=== PATIENT | female | born 1990 | race Caucasian/White ===

== ENCOUNTER 2017-07-18 15:32 | Emergency (ER) | payer OTHER ==
[~2017-07-18] VITALS: Ht 170.2 cm; Wt 90.9 kg
[2017-07-18] MEDS ORDERED: RIZA10TA4 PO ×2 (15:49→15:50)
[2017-07-18] MEDS ORDERED: PREN0.01 PO (15:49)
[2017-07-18] MEDS ORDERED: VESI10TA2 PO (15:49)
[2017-07-18] MEDS ORDERED: RIBO100C PO (15:49)
[2017-07-18] MEDS ORDERED: MAGN400C3 PO (15:49)
[2017-07-18] MEDS ORDERED: ALBU17IN INH (15:50)
[2017-07-18] MEDS ORDERED: CITA20TA4 PO (15:50)
[2017-07-18] MEDS ORDERED: ACETAMINOPHEN TAB 650MG DOSE (2X325MG) PO ONE (16:15)
[2017-07-18] MEDS ORDERED: KETOROLAC 30 MG/ML VIAL (J1885) IV ONE (16:15)
[2017-07-18] MEDS ORDERED: NS 1,000 ML IV ONE (16:15)
[2017-07-18] MEDS ORDERED: METOCLOPRAMIDE INJ 10MG/2ML VIAL (J2765) IV ONE (16:15)
[2017-07-18 17:00] LABS: BASO % 0.3 % (0.0-1.0); EOS # 0.1 K/mm3 (0.0-0.50); EOS % 0.6 % (0.0-3.0); LARGE UNSTAINED CELL # 0.1 K/mm3 (0.0-0.4); LARGE UNSTAINED CELL % 0.6 % (0.0-4.0); LYMPH # 1.8 K/mm3 (1.5-6.5); LYMPH % 10.4 % (24.0-44.0); MEAN CORPUSCULAR HEMOGLOBIN 30.1 pg (27.0-33.0); MEAN CORPUSCULAR HGB CONC 34.1 g/dl (32.0-36.5); MEAN CORPUSCULAR VOLUME 88.1 fl (80.0-96.0); MONO # 0.5 K/mm3 (0.0-0.8); NEUTROPHILS # 13.8 K/mm3 (1.8-7.7); NEUTROPHILS % 85.1 % (36.0-66.0); PLATELET COUNT, AUTOMATED 332 k/mm3 (150-450); RED CELL DISTRIBUTION WIDTH 12.4 % (11.5-14.5); WHITE BLOOD COUNT 16.2 K/mm3 (4.0-10.0)
[2017-07-18 17:18] LABS: ANION GAP 6 MEQ/L (8-16); BLOOD UREA NITROGEN 12 MG/DL (7-18); CALCIUM LEVEL 9.1 MG/DL (8.5-10.1); CARBON DIOXIDE LEVEL 27 MEQ/L (21-32); CHLORIDE LEVEL 106 MEQ/L (98-107); CREATININE FOR GFR 0.52 MG/DL (0.55-1.02); GLOMERULAR FILTRATION RATE > 60.0 (>60); GLUCOSE, FASTING 84 MG/DL (70-105); POTASSIUM SERUM 3.9 MEQ/L (3.5-5.1); SODIUM LEVEL 139 MEQ/L (136-145)
[2017-07-18] MEDS ORDERED: ZOFR4TAB3 PO (17:39)
[2017-07-18 17:43] VITALS: BP 132/83
--- NOTE | 2017-07-19 10:38 | ECGEPIP ---
Stationary ECG Study [facility] - ED Test Date: 2017-07-18 Pat Name: VIN YAN Department: Room: - Gender: F School Superintendent: : 1990 Requested By: NAOMI CARRENO PA-C. Order Number: [id number] Reading MD: Fabby Rivera Measurements Intervals [place] Rate: 68 P: 57 RI: 144 QRS: 51 QRSD: 93 T: 46 QT: 410 QTc: 437 Interpretive Statements SINUS RHYTHM DELAYED R PROGRESSION NO PRIOR FOR COMPARISON Electronically Signed On 07-19-2017 10:38:07 EDT by Fabby Rivera
== END 2017-07-18 17:48 | disposition home or self-care (01) ==
LOC: M ED 15:32
DX: G43.909 Migraine, unspecified, not intractable, without status migrainosus (principal); T88.7XXA Unspecified adverse effect of drug or medicament, initial encounter; Y92.9 Unspecified place or not applicable; Y93.9 Activity, unspecified; J45.909 Unspecified asthma, uncomplicated; Q61.3 Polycystic kidney, unspecified; F41.9 Anxiety disorder, unspecified; F32.9 Major depressive disorder, single episode, unspecified; Z79.899 Other long term (current) drug therapy
CPT/HCPCS: 80048; 85025; 93005; 96374; 96375; 99284; J1885; J2765

== ENCOUNTER 2017-10-06 17:10 | Emergency (ER) | payer OTHER ==
[~2017-10-06] VITALS: Ht 170.2 cm; Wt 94.5 kg
[~2017-10-06 17:10] MED LIST: ALBU17IN INH; CITA20TA4 PO; MAGN400C3 PO; PREN0.01 PO; RIBO100C PO; RIZA10TA4 PO; VESI10TA2 PO; ZOFR4TAB3 PO
[2017-10-06 17:11] VITALS: BP 166/89
[2017-10-06] MEDS ORDERED: FIOR1CAP PO (17:20)
== END 2017-10-06 18:45 | disposition home or self-care (01) ==
LOC: M ED 18:09
DX: R20.2 Paresthesia of skin (principal); G43.909 Migraine, unspecified, not intractable, without status migrainosus; E28.2 Polycystic ovarian syndrome; F32.9 Major depressive disorder, single episode, unspecified; Z79.899 Other long term (current) drug therapy

== ENCOUNTER 2018-05-05 08:00 | Day surgery (SDC) | payer OTHER ==
[2018-05-05] MEDS: NS 1,000 ML IV (08:15)
[2018-05-05] MEDS ORDERED: PROPOFOL 500 MG/50 ML VIAL As Ordered (08:45)
[2018-05-05] MEDS ORDERED: fentaNYL 100 MCG/2 ML INJECTION (J3010) As Ordered (08:45)
[2018-05-05] MEDS ORDERED: LIDOCAINE 2% INJ 100 MG/5 ML SDV (FOR ANES.) As Ordered (08:45)
[2018-05-05] MEDS ORDERED: ePHEDrine SULFATE 25 MG/5 ML(5MG/ML) SYRINGE As Ordered (09:01)
== END 2018-05-05 09:56 | disposition home or self-care (01) ==
LOC: M OPP 08:00
DX: K64.0 First degree hemorrhoids (principal); K62.5 Hemorrhage of anus and rectum; R19.4 Change in bowel habit; R07.9 Chest pain, unspecified; R10.13 Epigastric pain; N18.9 Chronic kidney disease, unspecified; J45.909 Unspecified asthma, uncomplicated; G43.909 Migraine, unspecified, not intractable, without status migrainosus; Q61.3 Polycystic kidney, unspecified; Z79.899 Other long term (current) drug therapy; Z91.018 Allergy to other foods; Z88.8 Allergy status to other drugs, medicaments and biological substances
CPT/HCPCS: 45378

== ENCOUNTER → 2018-06-06 | Outpatient (REF) ==
[2018-06-06 12:17] LABS: RUBELLA IgG QUALITATIVE IMMUNE (IMMUNE)
== END ==
LOC: M LAB 10:00
DX: Z00.00 Encounter for general adult medical examination without abnormal findings (principal)

== ENCOUNTER 2018-06-11 21:12 | Emergency (ER) | payer OTHER ==
[2018-06-11] MEDS: NS 1,000 ML IV (21:26)
[2018-06-11] MEDS: ONDANSETRON 4MG/2ML VIAL (J2405) IV (21:30)
[2018-06-11 22:27] LABS: BASO % 0.1 % (0.0-1.0); EOS # 0.4 10^3/uL (0.0-0.50); EOS % 1.9 % (0.0-3.0); HEMATOCRIT 41.3 % (36.0-47.0); HEMOGLOBIN 13.7 g/dl (12.0-15.5); IMMATURE GRANULOCYTE % 0.3 % (0-3.0); LYMPH # 1.3 10^3/uL (1.5-6.5); MEAN CORPUSCULAR HEMOGLOBIN 29.8 pg (27.0-33.0); MEAN CORPUSCULAR HGB CONC 33.2 g/dl (32.0-36.5); MONO # 0.6 10^3/uL (0.0-0.8); MONO % 3.1 % (0.0-5.0); NEUTROPHILS # 15.8 10^3/uL (1.8-7.7); NEUTROPHILS % 87.6 % (36.0-66.0); PLATELET COUNT, AUTOMATED 398 10^3/uL (150-450); RED BLOOD COUNT 4.59 10^6/uL (4.00-5.40); RED CELL DISTRIBUTION WIDTH 12.9 % (11.5-14.5)
[2018-06-11 22:40] LABS: CONTROL LINE HCG INT CTR LINE PRESENT; HCG, SERUM QUALITATIVE NEGATIVE (NEGATIVE)
[2018-06-11 22:48] LABS: ALBUMIN 3.7 GM/DL (3.2-5.2); ALBUMIN/GLOBULIN RATIO 0.97 (1.00-1.93); ALKALINE PHOSPHATASE 53 U/L (45-117); ALT/SGPT 19 U/L (12-78); ANION GAP 11 MEQ/L (8-16); AST/SGOT 11 U/L (7-37); BILIRUBIN,DIRECT 0.1 MG/DL (0.0-0.2); BILIRUBIN,TOTAL 0.4 MG/DL (0.2-1.0); BLOOD UREA NITROGEN 14 MG/DL (7-18); CALCIUM LEVEL 8.3 MG/DL (8.5-10.1); CARBON DIOXIDE LEVEL 21 MEQ/L (21-32); CHLORIDE LEVEL 109 MEQ/L (98-107); CREATININE FOR GFR 0.65 MG/DL (0.55-1.30); GLOMERULAR FILTRATION RATE > 60.0 (>60); GLUCOSE, FASTING 118 MG/DL (70-100); LIPASE 110 U/L (73-393); POTASSIUM SERUM 3.6 MEQ/L (3.5-5.1); SODIUM LEVEL 141 MEQ/L (136-145); TOTAL PROTEIN 7.5 GM/DL (6.4-8.2)
[2018-06-11 23:03] LABS: KETONE, URINE AUTO RFX 1+ mg/dL (NEGATIVE); LEUKOCYTE ESTERASE UR AUTO RFX NEGATIVE (NEGATIVE); MUCUS, URINE RFX SMALL (NEGATIVE); NITRITE, URINE AUTO RFX NEGATIVE (NEGATIVE); RBC, URINE AUTO RFX 4 /HPF (0-3); SPECIFIC GRAVITY UR AUTO RFX 1.027 (1.002-1.035); SQUAM EPITHELIAL CELL UR AURFX 0 /HPF (0-6); WBC, URINE AUTO RFX 2 /HPF (0-3)
[2018-06-12] MEDS ORDERED: ACETAMINOPHEN 325 MG TAB As Ordered (00:02)
[2018-06-12] MEDS: ACETAMINOPHEN 325 MG TAB PO (00:14)
== END 2018-06-12 00:15 | disposition home or self-care (01) ==
LOC: M ED 06-12 00:15
DX: B34.9 Viral infection, unspecified (principal); K52.9 Noninfective gastroenteritis and colitis, unspecified; J45.909 Unspecified asthma, uncomplicated; K21.9 Gastro-esophageal reflux disease without esophagitis; Q61.3 Polycystic kidney, unspecified; F41.9 Anxiety disorder, unspecified; F33.9 Major depressive disorder, recurrent, unspecified; Z79.899 Other long term (current) drug therapy; Z88.8 Allergy status to other drugs, medicaments and biological substances; Z91.048 Other nonmedicinal substance allergy status
CPT/HCPCS: J2405

== ENCOUNTER 2018-08-17 21:13 | Emergency (ER) | payer OTHER ==
[2018-08-17] MEDS: METOCLOPRAMIDE INJ 10MG/2ML VIAL (J2765) IV (23:20)
[2018-08-17] MEDS: KETOROLAC 30 MG/ML VIAL (J1885) IV (23:20)
[2018-08-17] MEDS: NS 1,000 ML IV (23:20)
[2018-08-17] MEDS: methylPREDNISolone INJ 125 MG/2 ML VIAL (J2930) IV (23:21)
[2018-08-17] MEDS: FAMOTIDINE IV BAG 20 MG in APPROPRIATE DILUENT 1 EA IV (23:54)
== END 2018-08-18 00:58 | disposition home or self-care (01) ==
LOC: M ED 08-18 00:58
DX: G43.909 Migraine, unspecified, not intractable, without status migrainosus (principal); L50.9 Urticaria, unspecified; J45.909 Unspecified asthma, uncomplicated; F41.9 Anxiety disorder, unspecified; F32.9 Major depressive disorder, single episode, unspecified; Q61.3 Polycystic kidney, unspecified; Z87.891 Personal history of nicotine dependence; Z91.02 Food additives allergy status; Z91.018 Allergy to other foods; Z88.8 Allergy status to other drugs, medicaments and biological substances; Z79.899 Other long term (current) drug therapy
CPT/HCPCS: J1885

== ENCOUNTER 2019-01-12 22:40 | Emergency (ER) | payer OTHER ==
[~2019-01-12] VITALS: Ht 170.2 cm; Wt 97.7 kg
[~2019-01-12 22:40] MED LIST changes: +CARA1TAB6 PO; +CIME200T2 PO; +CITA20TA4; +COLA100C5 PO; +EPIP0.3I2 IM; +FIOR1CAP PO; +FLUTISP; +KETO10TAB PO; +MINO100C80; +MIRA3350 PO; +MYRB50TA; +PEPC1TAB5 PO; +PRED20TA PO; -PREN0.01 PO; +PRENTAB77 PO; +VITA100067 PO; +ZOFR4TAB14 PO; -ZOFR4TAB3 PO
[2019-01-13] MEDS ORDERED: KETOROLAC 60 MG/2 ML VIAL (J1885) IM ONE (00:45)
[2019-01-13] MEDS ORDERED: CYCLOBENZAPRINE 10 MG TAB PO ONE (00:45)
[2019-01-13] MEDS ORDERED: KETO10TAB PO (00:49)
[2019-01-13] MEDS ORDERED: CYCL5TAB PO (00:49)
[2019-01-13 00:53] VITALS: BP 129/69
== END 2019-01-13 00:54 | disposition home or self-care (01) ==
LOC: M ED 22:40
DX: S29.012A Strain of muscle and tendon of back wall of thorax, initial encounter (principal); X58.XXXA Exposure to other specified factors, initial encounter; Y92.89 Other specified places as the place of occurrence of the external cause; G43.909 Migraine, unspecified, not intractable, without status migrainosus; J45.909 Unspecified asthma, uncomplicated; Q61.3 Polycystic kidney, unspecified; F41.9 Anxiety disorder, unspecified; F32.9 Major depressive disorder, single episode, unspecified; Z88.8 Allergy status to other drugs, medicaments and biological substances; Z91.048 Other nonmedicinal substance allergy status
CPT/HCPCS: 96372; 99283; J1885

== ENCOUNTER 2019-01-18 23:38 | Emergency (ER) | payer OTHER ==
[~2019-01-18] VITALS: Ht 170.2 cm; Wt 100.0 kg
[~2019-01-18 23:38] MED LIST changes: +CYCL5TAB PO
[2019-01-18] MEDS ORDERED: diphenhydrAMINE INJ 50MG/ML VIAL (J1200) IV STA (23:48)
[2019-01-19] MEDS ORDERED: dexameTHASONE 20 MG/5 ML VIAL (J1100) IV ONE
[2019-01-19 00:22] VITALS: BP 118/69
== END 2019-01-19 00:33 | disposition home or self-care (01) ==
LOC: M ED 23:38
DX: R22.1 Localized swelling, mass and lump, neck (principal); T78.40XA Allergy, unspecified, initial encounter; J45.909 Unspecified asthma, uncomplicated; F41.9 Anxiety disorder, unspecified; F33.9 Major depressive disorder, recurrent, unspecified; Z91.02 Food additives allergy status; Z88.8 Allergy status to other drugs, medicaments and biological substances; Z91.048 Other nonmedicinal substance allergy status
CPT/HCPCS: 96374; 96375; 99284; J1100; J1200

== ENCOUNTER 2019-06-22 14:08 | Emergency (ER) | payer OTHER ==
[~2019-06-22] VITALS: Ht 170.2 cm; Wt 100.0 kg
[~2019-06-22 14:08] MED LIST changes: -CITA20TA4; -CITA20TA4 PO; +CITA20TA6; +CITA20TA6 PO
[2019-06-22] MEDS ORDERED: CITA20TA6 OR (14:23)
[2019-06-22 15:04] LABS: BASO % 0.4 % (0.0-1.0); EOS # 0.3 10^3/uL (0.0-0.50); EOS % 3.2 % (0.0-3.0); HEMOGLOBIN 11.7 g/dl (12.0-15.5); LYMPH # 2.9 10^3/uL (1.5-6.5); LYMPH % 28.9 % (24.0-44.0); MEAN CORPUSCULAR HEMOGLOBIN 29.7 pg (27.0-33.0); MEAN CORPUSCULAR HGB CONC 33.4 g/dl (32.0-36.5); MEAN CORPUSCULAR VOLUME 88.8 fl (80.0-96.0); MONO # 0.6 10^3/uL (0.0-0.8); MONO % 5.7 % (0.0-5.0); NEUTROPHILS # 6.2 10^3/uL (1.8-7.7); NEUTROPHILS % 61.5 % (36.0-66.0); PLATELET COUNT, AUTOMATED 350 10^3/uL (150-450); RED BLOOD COUNT 3.94 10^6/uL (4.00-5.40); WHITE BLOOD COUNT 10.1 10^3/uL (4.0-10.0)
[2019-06-22 15:33] LABS: ALBUMIN 3.5 GM/DL (3.2-5.2); ALT/SGPT 22 U/L (12-78); BILIRUBIN,DIRECT < 0.1 MG/DL (0.0-0.2); BILIRUBIN,TOTAL 0.3 MG/DL (0.2-1.0); BLOOD UREA NITROGEN 8 MG/DL (7-18); CALCIUM LEVEL 8.8 MG/DL (8.5-10.1); CARBON DIOXIDE LEVEL 26 MEQ/L (21-32); CHLORIDE LEVEL 111 MEQ/L (98-107); CPK CREATINE PHOSPHOKINASE 99 U/L (26-192); CREATININE FOR GFR 0.51 MG/DL (0.55-1.30); GLOMERULAR FILTRATION RATE > 60.0 (>60); GLUCOSE, FASTING 87 MG/DL (70-100); LIPASE 113 U/L (73-393); MB/CK RELATIVE INDEX 1.01 (< OR =4); POTASSIUM SERUM 3.7 MEQ/L (3.5-5.1); SODIUM LEVEL 141 MEQ/L (136-145); TOTAL PROTEIN 6.9 GM/DL (6.4-8.2); TROPONIN I < 0.02 NG/ML (< 0.10)
[2019-06-22 15:34] LABS: HCG, SERUM QUALITATIVE NEGATIVE (NEGATIVE)
--- NOTE | 2019-06-22 16:14 | REP ---
Clinical: Acute chest pain . Comparison: 06/11/2018 . Findings: The mediastinum and cardiac silhouette are stable and within normal limits for portable technique. The lung vidal are clear without acute consolidation, effusion, or pneumothorax. Skeletal structures are intact. Impression: No acute cardiopulmonary process appreciated. Electronically Signed by Grey Stewart MD 06/22/2019 04:06 P
[2019-06-22 16:28] LABS: FREE T4 1.08 NG/DL (0.76-1.46); MAGNESIUM LEVEL 2.3 MG/DL (1.8-2.4); THYROID STIMULATING HORMONE 0.582 uIU/ML (0.358-3.740)
[2019-06-22] MEDS: ASPIRIN 81 MG CHEW TABLET PO ONE ×2 (16:47→16:49)
[2019-06-22 17:15] VITALS: BP 116/77
--- NOTE | 2019-06-22 20:26 | ECGEPIP ---
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
== END 2019-06-22 17:27 | disposition home or self-care (01) ==
LOC: M ED 14:08 → EDBD 14:08 → M ED 17:27
DX: R00.2 Palpitations (principal); R07.89 Other chest pain; Z88.8 Allergy status to other drugs, medicaments and biological substances; Z91.018 Allergy to other foods

== ENCOUNTER 2019-06-24 06:17 | Emergency (ER) | payer OTHER ==
[~2019-06-24] VITALS: Ht 170.2 cm; Wt 100.0 kg
[~2019-06-24 06:17] MED LIST changes: +CITA20TA6 OR
[2019-06-24] MEDS ORDERED: KETOROLAC 60 MG/2 ML VIAL (J1885) IM ONE (07:45)
[2019-06-24 09:39] VITALS: BP 128/77
--- NOTE | 2019-06-24 19:38 | ECGEPIP ---
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
== END 2019-06-24 09:47 | disposition home or self-care (01) ==
LOC: M ED 06:17
DX: F41.9 Anxiety disorder, unspecified (principal); K21.9 Gastro-esophageal reflux disease without esophagitis; Q61.2 Polycystic kidney, adult type; J45.909 Unspecified asthma, uncomplicated; G43.909 Migraine, unspecified, not intractable, without status migrainosus; Z79.899 Other long term (current) drug therapy; Z91.89 Other specified personal risk factors, not elsewhere classified; Z91.02 Food additives allergy status; Z88.8 Allergy status to other drugs, medicaments and biological substances
CPT/HCPCS: 93005; 96372; 99284; J1885